=== PATIENT | male | born 1975 | race American Indian/Alaskan Native ===

== ENCOUNTER 2020-08-28 12:41 | Emergency (ER) | payer SELFPAY ==
[2020-08-28 14:39] LABS: Basophils # (Auto) 0.1 K/mm3 (0.0-0.1); Basophils % (Auto) 1.1 % (0.0-1.8); Eosinophils # (Auto) 0.2 K/mm3 (0.0-0.4); Eosinophils % (Auto) 3.7 % (0.0-4.3); Hematocrit 47.2 % (35.5-45.6); Hemoglobin 15.9 gm/dl (11.8-15.2); Lymphocytes # (Auto) 2.2 K/mm3 (1.2-5.4); Lymphocytes % (Auto) 33.5 % (13.4-35.0); Mean Corpuscular HGB Conc 34 % (32-34); Mean Corpuscular Volume 79 fl (84-94); Monocytes # (Auto) 0.4 K/mm3 (0.0-0.8); Monocytes % (Auto) 6.8 % (0.0-7.3); Platelet Count 203 K/mm3 (140-440); Red Blood Count 5.95 M/mm3 (3.65-5.03); Red Cell Distribution Width 16.2 % (13.2-15.2)
--- NOTE | 2020-08-28 14:46 | XRay Report ---
CHEST 2 VIEWS INDICATION / CLINICAL INFORMATION: cough, HTN urgency. COMPARISON: None available. FINDINGS: SUPPORT DEVICES: None. HEART / MEDIASTINUM: No significant abnormality. LUNGS / PLEURA: No significant pulmonary or pleural abnormality. No pneumothorax. ADDITIONAL FINDINGS: No significant additional findings. IMPRESSION: 1. No acute findings. Signer Name: Mario Collazo MD Signed: 08/28/2020 2:41 PM Workstation Name: [id number]
[2020-08-28 15:11] LABS: Alanine Aminotransferase 42 units/L (7-56); Albumin 4.2 g/dL (3.9-5); BUN/Creatinine Ratio 9; Blood Urea Nitrogen 8 mg/dL (9-20); Calcium 9.3 mg/dL (8.4-10.2); Hemolysis Index 7
[2020-08-28] MEDS ORDERED: POTASSIUM CHLORIDE ER 20 MEQ TAB PO ONE (15:15)
--- NOTE | 2020-08-28 15:27 | Cat Scan Report ---
CT HEAD WITHOUT CONTRAST INDICATION / CLINICAL INFORMATION: HTN urgency, CHU, blurred vision. TECHNIQUE: Axial imaging performed from the skull apex through the skull base without the use of cont rast. Sagittal and coronal reformatted images. All CT scans at this location are performed using CT dose reduction for ALARA by means of automated exposure control. COMPARISON: None available. FINDINGS: CEREBRAL PARENCHYMA: No significant abnormality. No acute territorial infarct. HEMORRHAGE: None. EXTRA-AXIAL SPACES: Normal in size and morphology for the patient's age. VENTRICULAR SYSTEM: Normal in size and morphology for the patient's age. MIDLINE SHIFT OR HERNIATION: None. CEREBELLUM / BRAINSTEM: No significant abnormality. CALVARIUM: No significant abnormality. ORBITS: Normal as visualized. PARANASAL SINUSES / MASTOID AIR CELLS: Normal as visualized. SOFT TISSUES of HEAD: No significant abnormality. ADDITIONAL FINDINGS: None. IMPRESSION: No acute intracranial abnormality. Signer Name: Lyle Hernandez Jr, MD Signed: 08/28/2020 3:23 PM Workstation Name: [id number]
[2020-08-28 15:48] VITALS: BP 160/106
[2020-08-28 16:04] LABS: Bacteria,Urine 1+ /HPF (Negative); Bilirubin,Urine NEG (Negative); Blood,Urine NEG (Negative); Color,Urine Yellow (Yellow); Protein,Urine <15 mg/dL mg/dL (Negative); Urobilinogen,Urine < 2.0 mg/dL (<2.0)
--- NOTE | 2020-08-28 16:45 | Emergency Department Report ---
ED General Adult HPI - General Chief complaint: High BP Stated complaint: HBP PUI?: No Time Seen by Provider: 08/28/20 14:12 Source: patient Mode of arrival: Ambulatory Limitations: No Limitations - History of Present Illness Initial comments: Patient is a 45-year-old male presents emergency room with complaints of elevated blood pressure for a week. Patient states that he has had a dry cough for approximately 10 days. He denies any productive cough. He states he has been using yjxq-cjp-[id number] cough medication and states that he did not pay attention if it was safe for blood pressure. He states he has been having a bi lateral temporal headache and occasional blurry vision when his blood pressure is elevated. He states that his primary care doctor put him on atenolol with chlorthalidone and lisinopril with hydrochlorothiazide in March. He is on 2 diuretics. He states he has not followed up with his primary care doctor yet as he missed his visit. He denies any speech disturbance, gait disturbance, numbness, weakness, chest pain, shortness of breath. He denies any other past medical history. No allergies medications. - Related Data Previous Rx's Medication Instructions Recorded Last Taken Type Losartan [Cozaar] 25 mg PO QDAY #30 tablet 08/28/20 Unknown Rx Allergies Allergy/AdvReac Type Severity Reaction Status Date / Time No Known Allergies Allergy Unverified 08/28/20 13:30 ED Review of Systems ROS: Stated complaint: HBP Other details as noted in HPI Comment: All other systems reviewed and negative ED Past Medical Hx - Past Medical History Previous Medical History?: Yes Hx Hypertension: Yes - Medications Home Medications: Home Medications Medication Instructions Recorded Confirmed Last Taken Type Losartan [Cozaar] 25 mg PO QDAY #30 tablet 08/28/20 Unknown Rx ED Physical Exam - General Limitations: No Limitations General appearance: alert, in no apparent distress - Head Head exam: Present: atraumatic, normocephalic - Eye Eye exam: Present: normal appearance, PERRL, EOMI - ENT ENT exam: Present: mucous membranes moist - Respiratory Respiratory exam: Present: normal lung sounds bilaterally. Absent: respiratory distress, wheezes, rales, rhonchi, stridor, chest wall tenderness, accessory muscle use, decreased breath sounds, prolonged expiratory - Cardiovascular Cardiovascular Exam: Present: regular rate, normal rhythm, normal heart sounds. Absent: systolic murmur, diastolic murmur, rubs, gallop - Neurological Exam Neurological exam: Present: alert, oriented X3, CN II-XII intact, normal gait. Absent: motor sensory deficit - Psychiatric Psychiatric exam: Present: normal affect, normal mood - Skin Skin exam: Present: warm, dry, intact ED Course Vital Signs 08/28/20 08/28/20 13:23 15:47 Temperature 98.2 F Pulse Rate 62 63 Respiratory 20 Rate Blood Pressure 170/114 Blood Pressure 160/106 [Right] O2 Sat by Pulse 99 100 Oximetry ED Medical Decision Making - Lab Data Result diagrams: 08/28/20 14:18 08/28/20 14:18 Lab Results 08/28/20 08/28/20 08/28/20 Range/Units 14:18 14:18 15:35 WBC 6.6 (4.5-11.0) K/mm3 RBC 5.95 H (3.65-5.03) M/mm3 Hgb 15.9 H (11.8-15.2) gm/dl Hct 47.2 H (35.5-45.6) % MCV 79 L (84-94) fl MCH 27 L (28-32) pg MCHC 34 (32-34) % RDW 16.2 H (13.2-15.2) % Plt Count 203 (140-440) K/mm3 Lymph % (Auto) 33.5 (13.4-35.0) % [place] % (Auto) 6.8 (0.0-7.3) % Eos % (Auto) 3.7 (0.0-4.3) % Baso % (Auto) 1.1 (0.0-1.8) % Lymph # (Auto) 2.2 (1.2-5.4) K/mm3 [place] # (Auto) 0.4 (0.0-0.8) K/mm3 Eos # (Auto) 0.2 (0.0-0.4) K/mm3 Baso # (Auto) 0.1 (0.0-0.1) K/mm3 Seg Neutrophils % 54.9 (40.0-70.0) % Seg Neutrophils # 3.6 (1.8-7.7) K/mm3 Sodium 138 (137-145) mmol/L Potassium 2.5 L* (3.6-5.0) mmol/L Chloride 96.8 L (98-107) mmol/L Carbon Dioxide 33 H (22-30) mmol/L Anion Gap 11 mmol/L BUN 8 L (9-20) mg/dL Creatinine 0.9 (0.8-1.3) mg/dL Estimated GFR > 60 ml/min BUN/Creatinine Ratio 9 % Glucose 105 H (75-100) mg/dL Calcium 9.3 (8.4-10.2) mg/dL Total Bilirubin 1.00 (0.1-1.2) mg/dL AST 28 (5-40) units/L ALT 42 (7-56) units/L Alkaline Phosphatase 42 (35-129) units/L Troponin T < 0.010 (0.00-0.029) ng/mL NT-Pro-B Natriuret Pep 49.12 (0-450) pg/mL Total Protein 7.2 (6.3-8.2) g/dL Albumin 4.2 (3.9-5) g/dL Albumin/Globulin Ratio 1.4 % Urine Color Yellow (Yellow) Urine Turbidity Clear (Clear) Urine pH 7.0 (5.0-7.0) Ur Specific [place] 1.009 (1.003-1.030) Urine Protein <15 mg/dl (Negative) mg/dL Urine Glucose (UA) Neg (Negative) mg/dL Urine Ketones Neg (Negative) mg/dL Urine Blood Neg (Negative) Urine Nitrite Neg (Negative) Urine Bilirubin Neg (Negative) Urine Urobilinogen < 2.0 (<2.0) mg/dL Ur Leukocyte Esterase Neg (Negative) Urine WBC (Auto) 1.0 (0.0-6.0) /HPF Urine RBC (Auto) 3.0 (0.0-6.0) /HPF Urine Bacteria (Auto) 1+ (Negative) /HPF Vital Signs 08/28/20 08/28/20 13:23 15:47 Temperature 98.2 F Pulse Rate 62 63 Respiratory 20 Rate Blood Pressure 170/114 Blood Pressure 160/106 [Right] O2 Sat by Pulse 99 100 Oximetry - EKG Data EKG shows normal: sinus rhythm, axis, QRS complexes, ST-T waves Rate: bradycardia (59 bpm) - EKG Data 08/28/20 21:57 LAD prolonged [place] interval 235 - Radiology Data Radiology results: report reviewed Ordering Physician: CARLIN SAVAGE Date of Service: 08/28/20 Procedure(s): CT head/brain wo con Accession Number(s): [id number] cc: CARLIN SAVAGE CT HEAD WITHOUT CONTRAST INDICATION / CLINICAL INFORMATION: HTN urgency, CHU, blurred vision. TECHNIQUE: Axial imaging performed from the skull apex through the skull base without the use of contrast. Sagittal and coronal reformatted images. All CT scans at this location are performed using CT dose reduction for ALARA by means of automated exposure control. COMPARISON: None available. FINDINGS: CEREBRAL PARENCHYMA: No significant abnormality. No acute territorial infarct. HEMORRHAGE: None. EXTRA-AXIAL SPACES: Normal in size and morphology for the patient's age. VENTRICULAR SYSTEM: Normal in size and morphology for the patient's age. MIDLINE SHIFT OR HERNIATION: None. CEREBELLUM / BRAINSTEM: No significant abnormality. CALVARIUM: No significant abnormality. ORBITS: Normal as visualized. PARANASAL SINUSES / MASTOID AIR CELLS: Normal as visualized. SOFT TISSUES of HEAD: No significant abnormality. ADDITIONAL FINDINGS: None. IMPRESSION: No acute intracranial abnormality. Signer Name: Lyle Hernandez Jr, MD Signed: 08/28/2020 3:23 PM Workstation Name: [id number] Transcribed By: BRITTANY Dictated By: LYLE HERNANDEZ JR, MD Electronically Authenticated By: LYLE HERNANDEZ JR, MD Signed Date/Time: 08/28/20 1523 DD/ 1513 TD/TT: Ordering Physician: CARLIN SAVAGE Date of Service: 08/28/20 Procedure(s): XR chest routine 2V Accession Number(s): [id number] cc: CARLIN SAVAGE Fluoro Time In Minutes: CHEST 2 VIEWS INDICATION / CLINICAL INFORMATION: cough, HTN urgency. COMPARISON: None available. FINDINGS: SUPPORT DEVICES: None. HEART / MEDIASTINUM: No significant abnormality. LUNGS / PLEURA: No significant pulmonary or pleural abnormality. No pneumothorax. ADDITIONAL FINDINGS: No significant additional findings. IMPRESSION: 1. No acute findings. Signer Name: Mario Collazo MD Signed: 08/28/2020 2:41 PM Workstation Name: [id number] Transcribed By: IRIS Dictated By: Mario Collazo MD Electronically Authenticated By: Mario Collazo MD Signed Date/Time: 08/28/20 144 DD/ 144 TD/TT: Ordering Physician: CARLIN SAVAGE Date of Service: 08/28/20 Procedure(s): CT head/brain wo con Accession Number(s): [id number] cc: CARLIN SAVAGE CT HEAD WITHOUT CONTRAST INDICATION / CLINICAL INFORMATION: HTN urgency, CHU, blurred vision. TECHNIQUE: Axial imaging performed from the skull apex through the skull base w ithout the use of contrast. Sagittal and coronal reformatted images. All CT scans at this location are performed using CT dose reduction for ALARA by means of automated exposure control. COMPARISON: None available. FINDINGS: CEREBRAL PARENCHYMA: No significant abnormality. No acute territorial infarct. HEMORRHAGE: None. EXTRA-AXIAL SPACES: Normal in size and morphology for the patient's age. VENTRICULAR SYSTEM: Normal in size and morphology for the patient's age. MIDLINE SHIFT OR HERNIATION: None. CEREBELLUM / BRAINSTEM: No significant abnormality. CALVARIUM: No significant abnormality. ORBITS: Normal as visualized. PARANASAL SINUSES / MASTOID AIR CELLS: Normal as visualized. SOFT TISSUES of HEAD: No significant abnormality. ADDITIONAL FINDINGS: None. IMPRESSION: No acute intracranial abnormality. Signer Name: Lyle Hernandez Jr, MD Signed: 08/28/2020 3:23 PM Workstation Name: [id number] Transcribed By: TTR Dictated By: LYLE HERNANDEZ JR, MD Electronically Authenticated By: LYLE HERNANDEZ JR, MD Signed Date/Time: 08/28/20 1523 DD/ 1513 TD/TT: - Medical Decision Making Patient is a 45-year-old male presents emergency room with complaints of elevated blood pressure for a week. Patient states that he has had a dry cough for approximately 10 days. He denies any productive cough. He states he has been using czlu-mtn-jzhgcki cough medication and states that he did not pay attention if it was safe for blood pressure. He states he has been having a bilateral temporal headache and occasional blurry vision when his blood pressure is elevated. He states that his primary care doctor put him on atenolol with chlorthalidone and lisinopril with hydrochlorothiazide in March. He is on 2 diuretics. He states he has not followed up with his primary care doctor yet as he missed his visit. He denies any speech disturbance, gait disturbance, numbness, weakness, chest pain, shortness of breath. He denies any other past medical history. No allergies medications. vitals with elevated BP, improved on repeat. no focal neuro deficits. Labs with potassium of 2.5, otherwise labs are stable. Troponins negative. BNP is negative. UA is within normal limits, no proteinuria. Chest x-ray: 1. No acute findings. CT head: No acute i ntracranial abnormality. EKG with prolonged interval at 235, mild sinus bradycardia at 59 bpm, no ST-T changes. Patient's potassium repleted. Hypokalemia is likely secondary to his blood pressure use as he is on 2 diuretics. Will take patient off the lisinopril with hydrochlorothiazide. Lisinopril could be causing a cough. He does not need to be on [address] patient on losartan. Advised patient Please stop taking lisinopril with hydrochlorothiazide. You should not be taking 2 diuretic medications. Please begin taking losartan. Please keep a blood pressure log and take this to your primary care doctor. Please increase your potassium intake. Follow-up with your primary care doctor. Eat a low-sodium diet. Increase your water intake. Incorporate 30 to 60 minutes of daily exercise. Return to emergency room for any new or worsening symptoms. Critical care attestation.: If time is entered above; I have spent that time in minutes in the direct care of this critically ill patient, excluding procedure time. ED Disposition Clinical Impression: Hypertensive urgency, Dry cough, Hypokalemia Headache Qualifiers: Headache type: unspecified Headache chronicity pattern: acute headache Intractability: not intractable Qualified Code(s): R51.9 - Headache, unspecified Disposition: DC-01 TO HOME OR SELFCARE Is pt being admited?: No Does the pt Need Aspirin: No Condition: Stable Instructions: Hypokalemia, Managing Your Hypertension, Hypertension, Adult Additional Instructions: Please stop taking lisinopril with hydrochlorothiazide. You should not be taking 2 diuretic medications. Please begin taking losartan. Please keep a blood pressure log and take this to your primary care doctor. Please increase your potassium intake. Follow-up with your primary care doctor. Eat a low- sodium diet. Increase your water intake. Incorporate 30 to 60 minutes of daily exercise. Return to emergency room for any new or worsening symptoms. Prescriptions: Losartan [Cozaar] 25 mg PO QDAY #30 tablet Referrals: PRIMARY CARE, [Primary Care Provider] - 2-3 Days Time of Disposition: 16:45 Print Language: NAMIBIAN
--- NOTE | 2020-08-29 13:34 | Electrocardiograph Report ---
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
== END 2020-08-28 17:27 | disposition home or self-care (01) ==
LOC: ED 12:41
DX: I16.0 Hypertensive urgency (principal); E87.6 Hypokalemia; R05 Cough; R51.9 Headache, unspecified; I10 Essential (primary) hypertension; Z79.899 Other long term (current) drug therapy
CPT/HCPCS: 36415; 70450; 71046; 80053; 81001; 83880; 84484; 85025; 93005